=== PATIENT | female | born 1955 | race Caucasian/White ===

== ENCOUNTER 2017-02-05 06:35 | Inpatient (IN) | payer OTHER ==
[~2017-02-05] VITALS: Ht 160 cm; Wt 75.4 kg
[~2017-02-05 06:35] MED LIST: LEVO75TA PO; LXP/10 PO; OXYC-57 PO; PRLSR20 PO; ROPI0.5T15 PO
[2017-02-05] MEDS ORDERED: KETOROLAC TROMETHAMINE 30 MG/ML VIAL IV STA (06:49)
[2017-02-05] MEDS ORDERED: ONDANSETRON INJ 2 MG/ML 2 ML VIAL IV STA (06:49)
[2017-02-05] MEDS ORDERED: DEXAMETHASONE INJ 10 MG in SYRINGE 0 ML IV STA ×2 (06:49→09:58)
[2017-02-05] MEDS ORDERED: HYDROmorphone INJ 1 MG/ML SYR IV STA ×3 (06:49→09:45)
[2017-02-05] MEDS ORDERED: LIDODERM (LIDOCAINE) PATCH 5% TD STA (06:51)
--- NOTE | 2017-02-05 07:04 | EMERGENCY ROOM VISIT NOTE ---
History Report prepared by Manuel: Sundar Dubois Under the Supervision of: Dr. Donavon Lr M.D. First contact with patient: 06:45 Chief Complaint: LEG PAIN,LEG INJURY Stated Complaint: SCIATIC NERVE PAIN History of Present Illness The patient is a 61 year old female who presents to the Emergency Room with complaints of worsening right upper leg pain that radiates to her lower leg beginning two months ago. The patient states she was here three weeks ago and followed up with an orthopedist. She reports she was told she had a herniated disk that is pushing on her sciatic nerve. The patient notes she has not had an MRI done because her insurance would not approve it until after pain management failed. She states she woke in the middle of the night with excruciating pain, numbness, and is currently unable to walk on her right leg. The patient reports she cannot walk on her tiptoes either. She denies back pain, a history of diabetes mellitus, and taking blood thinners. Source of History: patient Onset: two months ago Position: leg (right, upper) Symptom Intensity: excruciating Quality: numbness Timing: worsening Modifying Factors (Worsening): other (walking) Associated Symptoms: No back pain Review of Systems See HPI for pertinent positives & negatives. A total of 10 systems reviewed and were otherwise negative. Past Medical & Surgical Medical Problems: (1) Herniated disc Surgical Problems: (1) S/P cholecystectomy Family History Cancer Social History Smoking Status: Current Every Day Smoker Alcohol Use: occasionally Marital Status: Housing Status: lives with significant other Occupation Status: employed Current/Historical Medications Scheduled Escitalopram Oxalate (Lexapro), 10 MG PO QAM Levothyroxine Sodium (Synthroid), 75 MCG PO QAM Omeprazole (Prilosec), 20 MG PO QAM Ropinirole (Requip), 0.5 MG PO QPM Allergies Coded Allergies: No Known Allergies (Unverified , 02/05/17) Physical Exam Vital Signs Date Time Temp Pulse Resp B/P (MAP) Pulse Ox O2 Delivery O2 Flow Rate FiO2 02/05/17 10:01 70 20 145/69 97 Room Air 02/05/17 08:14 70 20 142/78 93 Room Air 02/05/17 06:39 36.7 82 18 146/91 90 Room Air Physical Exam GENERAL: Patient is a healthy-appearing well-nourished 61 year old female. HEAD: Normocephalic atraumatic EYES: Ocular movements intact pupils equal and react to light OROPHARYNX mucous membranes are moist no exudates present no erythema or edema present NECK: Supple no nuchal rigidity CHEST: Good equal expansion LUNGS: Clear and equal to auscultation CARDIAC: Normal S1 and S2 ABDOMEN: Soft nontender no guarding BACK: No CVA tenderness EXTREMITIES: No pain upon palpation, cannot walk on right leg - strength of 4/ 5. Unable to walk on tiptoes. no clubbing cyanosis or edema NEURO: Patient is following commands and answering questions appropriately. Alert and oriented x3 Cranial Nerves 2-12 grossly intact Medical Decision & Procedures ER Provider Diagnostic Interpretation: Radiology results as stated below per my review and radiologist interpretation: MRI OF THE LUMBAR SPINE WITHOUT IV CONTRAST CLINICAL HISTORY: Right leg pain. COMPARISON STUDY: CT scan of lumbar spine dated 01/15/2017. TECHNIQUE: MRI of the lumbar spine is performed using various T1 and T2-weighted sequences in the axial and sagittal planes. IV contrast was not administered for this examination. FINDINGS: Lumbar spine: Vertebral body height and alignment are maintained throughout the lumbar spine. The transverse and spinous processes appear intact. There is no evidence of spondylolysis. No destructive bony lesion is seen. A hemangioma is noted in the body of L1. Degenerative endplate edema is noted at L4-L5 and L5-S1. Intervertebral discs: Degenerative disc desiccation and mild loss of height is seen throughout the lumbar spine. Spinal cord: The visualized spinal cord is normal in morphology and signal intensity. The conus medullaris terminates at the level of L1. The nerve roots of the cauda equina are normal in morphology. L1-L2: There is minimal posterior disc bulge. The central canal and neural foramina are patent. L2-L3: There is a posterior disc bulge. The central canal and neural foramina are patent. Mild bilateral subarticular stenosis is observed. This may abut the transiting left L3 nerve root. L3-L4: There is posterior disc bulge. In conjunction with hypertrophy of the ligamentum flavum there is mild central canal stenosis at this level with a minimum AP diameter of 8.5 mm. There is bilateral subarticular stenosis with possible impingement on the exiting left L3 nerve root. L4-L5: There is broad-based posterior disc bulge with annular fissure. In conjunction with hypertrophy of the ligamentum flavum this causes mild central canal stenosis with a minimum AP diameter of 7.5 mm. There is bilateral subarticular stenosis. The disc bulge may abut the exiting bilateral L4 and the transiting bilateral L5 nerve roots. L5-S1: There is a large disc herniation eccentric to the right with an inferiorly extruded fragment. This impinges on the transiting right-sided sacral nerve roots. There is only minimal acquired compromise the central canal at this level. The neural foramina are patent. Facet arthropathy is of no consequence. Sacrum: The visualized sacrum is normal in morphology and signal intensity. Soft tissues: The paraspinous soft tissues are within normal limits. The partially imaged retroperitoneal structures are grossly unremarkable but incompletely assessed. A nerve sheath cyst is suggested within the left neural foramen at T11-T12. This is only seen on the sagittal series. IMPRESSION: 1. There is a large disc herniation at L5-S1 eccentric to the right with an inferiorly extruded fragment. This impinges on the transiting right-sided sacral nerve roots. This was also seen by CT performed 3 weeks previously. 2. Multilevel lumbosacral spondylosis at additional levels as above with mild multilevel acquired compromise of the central canal. See discussion for detailed level by level analysis. 3. Degenerative disc disease with associated endplate edema as above. Electronically signed by: Hossein Fink M.D. 02/05/2017 8:47 AM Dictated Date/Time: 02/05/2017 8:14 AM Laboratory Results 02/05/17 07:15 Red Blood Count 4.60, Mean Corpuscular Volume 86.3, Mean Corpuscular Hemoglobin 29.6, Mean Corpuscular Hemoglobin Concent 34.3, Mean Platelet Volume 10.5, Neutrophils (%) (Auto) 61.1, Lymphocytes (%) (Auto) 24.0, Monocytes (%) (Auto) 8.8, Eosinophils (%) (Auto) 5.1, Basophils (%) (Auto) 0.9, Neutrophils # (Auto) 4.56, Lymphocytes # (Auto) 1.79, Monocytes # (Auto) 0.66, Eosinophils # (Auto) 0.38, Basophils # (Auto) 0.07 02/05/17 07:15 Test 02/05/17 07:15 White Blood Count 7.47 K/uL (4.8-10.8) Red Blood Count 4.60 M/uL (4.2-5.4) Hemoglobin 13.6 g/dL (12.0-16.0) Hematocrit 39.7 % (37-47) Mean Corpuscular Volume 86.3 fL (80-100) Mean Corpuscular Hemoglobin 29.6 pg (25-34) Mean Corpuscular Hemoglobin Concent 34.3 g/dl (32-36) Platelet Count 361 K/uL (130-400) Mean Platelet Volume 10.5 fL (7.4-10.4) Neutrophils (%) (Auto) 61.1 % Lymphocytes (%) (Auto) 24.0 % Monocytes (%) (Auto) 8.8 % Eosinophils (%) (Auto) 5.1 % Basophils (%) (Auto) 0.9 % Neutrophils # (Auto) 4.56 K/uL (1.4-6.5) Lymphocytes # (Auto) 1.79 K/uL (1.2-3.4) Monocytes # (Auto) 0.66 K/uL (0.11-0.59) Eosinophils # (Auto) 0.38 K/uL (0-0.5) Basophils # (Auto) 0.07 K/uL (0-0.2) RDW Standard Deviation 44.5 fL (36.4-46.3) RDW Coefficient of Variation 14.3 % (11.5-14.5) Immature Granulocyte % (Auto) 0.1 % Immature Granulocyte # (Auto) 0.01 K/uL (0.00-0.02) Anion Gap 8.0 mmol/L (3-11) Est Creatinine Clear Calc Drug Dose 83.1 ml/min Estimated GFR () 109.1 Estimated GFR (Non- 94.2 BUN/Creatinine Ratio 18.1 (10-20) Calcium Level 9.2 mg/dl (8.5-10.1) Total Bilirubin 0.5 mg/dl (0.2-1) Direct Bilirubin < 0.1 mg/dl (0-0.2) Aspartate Amino Transf (AST/SGOT) 20 U/L (15-37) Alanine Aminotransferase (ALT/SGPT) 22 U/L (12-78) Alkaline Phosphatase 64 U/L (45-117) Total Protein 7.0 gm/dl (6.4-8.2) Albumin 4.0 gm/dl (3.4-5.0) Lipase 92 U/L (73-393) Thyroid Stimulating Hormone (TSH) 9.580 uIu/ml (0.300-4.500) Medications Administered Medications (Trade) Dose Ordered Sig/Carlos Route Start Time Stop Time Status Last Admin Dose Admin Dexamethasone Sodium Phosphate 10 mg/Syringe 2.5 ml @ 1 mls/min NOW STAT IV 02/05/17 06:49 02/05/17 06:51 DC 02/05/17 07:34 1 MLS/MIN Ketorolac Tromethamine (Toradol Inj) 30 mg NOW STAT IV 02/05/17 06:49 02/05/17 06:52 DC 02/05/17 07:20 30 MG Hydromorphone HCl (Dilaudid Inj) 1 mg NOW STAT IV 02/05/17 06:49 02/05/17 06:52 DC 02/05/17 07:19 1 MG Ondansetron HCl (Zofran Inj) 4 mg NOW STAT IV 02/05/17 06:49 02/05/17 06:52 DC 02/05/17 07:19 4 MG Lidocaine (Lidoderm Patch 5%) 1 patch NOW STAT TD 02/05/17 06:51 02/05/17 06:52 DC 02/05/17 07:18 1 PATCH Hydromorphone HCl (Dilaudid Inj) 1 mg NOW STAT IV 02/05/17 08:08 02/05/17 08:10 DC 02/05/17 08:16 1 MG Hydromorphone HCl (Dilaudid Inj) 1 mg NOW STAT IV 02/05/17 09:45 02/05/17 09:47 DC 02/05/17 10:01 1 MG Dexamethasone Sodium Phosphate 10 mg/Syringe 2.5 ml @ 1 mls/min NOW STAT IV 02/05/17 09:58 02/05/17 10:00 DC 02/05/17 10:10 1 MLS/MIN Hydromorphone HCl (Dilaudid Inj) 1 mg Q2HWA PRN IV 02/05/17 10:45 02/19/17 10:44 02/05/17 12:41 1 MG ED Course 0646: Past medical records reviewed. The patient was evaluated in room B02. A complete history and physical examination was performed. 0649: Ordered Ondansetron HCl 4 mg IV, Hydromorphone HCl 1mg IV, Ketorolac Tromethamine 30mg IV, Dexamethasone Sodium Phosphate 10 mg/Syringe 2.5 ml @ 1 mls/min IV 0651: Ordered Lidocaine 1 patch TD 0808: Ordered Hydromorphone HCl 1mg IV 0925: I paged [facility]. 0944: Upon reexamination the patient is resting and requesting more pain medication. I discussed results and treatment plan with the patient. She verbalizes agreement and understanding. 0945: Ordered Hydromorphone HCl 1mg IV 0958: Ordered Dexamethasone Sodium Phosphate 10 mg/Syringe 2.5 ml @ 1 mls/min IV 0959: I discussed the patient's case with Dr. Still [facility] Hospitalist because I did not hear back from [facility]. The patient will be evaluated for further management and care. Medical Decision Differential diagnosis: Etiologies such as musculoskeletal, disc herniation, fracture, aortic disease, metastatic disease, cord compression, discitis, infection, renal colic, gastrointestinal, acute exacerbation of chronic back pain, sciatica, cauda equina, as well as others were entertained. This is a 61-year-old female who presents emergency department complaining of right-sided hip pain. The patient is unable to walk on her right side is complaining of right leg weakness. This for this reason she was sent for an emergent MRI or this was concerning for disc herniation. I had difficulty getting her pain under control has patient was given Decadron, Toradol, Dilaudid 3 along with a Lidoderm patch. For this reason I did discuss case with the hospitalist service who agreed to admit the patient. Patient and family were in agreement with treatment plan. Medication Reconcilliation Current Medication List: was personally reviewed by me Blood Pressure Screening Patient's blood pressure: Elevated blood pressure Blood pressure disposition: Referred to PCP Monitored by hospitalist. Consults Time Called: 945 Consulting Physician: Dr. Still [facility] Hospitalist Returned Call: [phone] I discussed the patient's case with Dr. Still [facility] Hospitalist because I did not hear back from [facility]. The patient will be evaluated for further management and care. Impression Primary Impression: Hip pain Scribe Attestation The scribe's documentation has been prepared under my direction and personally reviewed by me in its entirety. I confirm that the note above accurately reflects all work, treatment, procedures, and medical decision making performed by me. Departure Information Dispostion Being Evaluated By Hospitalist Referrals Jeronimo Chapin D.O. (PCP) Patient Instructions My [facility] Problem Qualifiers Primary Impression: Hip pain Laterality: right Qualified Codes: M25.551 - Pain in right hip
--- NOTE | 2017-02-05 08:48 | DIAGNOSTIC IMAGING REPORT ---
MRI OF THE LUMBAR SPINE WITHOUT IV CONTRAST CLINICAL HISTORY: Right leg pain. COMPARISON STUDY: CT scan of lumbar spine dated 01/15/2017. TECHNIQUE: MRI of the lumbar spine is performed using various T1 and T2-weighted sequences in the axial and sagittal planes. IV contrast was not administered for this examination. FINDINGS: Lumbar spine: Vertebral body height and alignment are maintained throughout the lumbar spine. The transverse and spinous processes appear intact. There is no evidence of spondylolysis. No destructive bony lesion is seen. A hemangioma is noted in the body of L1. Degenerative endplate edema is noted at L4-L5 and L5-S1. Intervertebral discs: Degenerative disc desiccation and mild loss of height is seen throughout the lumbar spine. Spinal cord: The visualized spinal cord is normal in morphology and signal intensity. The conus medullaris terminates at the level of L1. The nerve roots of the cauda equina are normal in morphology. L1-L2: There is minimal posterior disc bulge. The central canal and neural foramina are patent. L2-L3: There is a posterior disc bulge. The central canal and neural foramina are patent. Mild bilateral subarticular stenosis is observed. This may abut the transiting left L3 nerve root. L3-L4: There is posterior disc bulge. In conjunction with hypertrophy of the ligamentum flavum there is mild central canal stenosis at this level with a minimum AP diameter of 8.5 mm. There is bilateral subarticular stenosis with possible impingement on the exiting left L3 nerve root. L4-L5: There is broad-based posterior disc bulge with annular fissure. In conjunction with hypertrophy of the ligamentum flavum this causes mild central canal stenosis with a minimum AP diameter of 7.5 mm. There is bilateral subarticular stenosis. The disc bulge may abut the exiting bilateral L4 and the transiting bilateral L5 nerve roots. L5-S1: There is a large disc herniation eccentric to the right with an inferiorly extruded fragment. This impinges on the transiting right-sided sacral nerve roots. There is only minimal acquired compromise the central canal at this level. The neural foramina are patent. Facet arthropathy is of no consequence. Sacrum: The visualized sacrum is normal in morphology and signal intensity. Soft tissues: The paraspinous soft tissues are within normal limits. The partially imaged retroperitoneal structures are grossly unremarkable but incompletely assessed. A nerve sheath cyst is suggested within the left neural foramen at T11-T12. This is only seen on the sagittal series. IMPRESSION: 1. There is a large disc herniation at L5-S1 eccentric to the right with an inferiorly extruded fragment. This impinges on the transiting right-sided sacral nerve roots. This was also seen by CT performed 3 weeks previously. 2. Multilevel lumbosacral spondylosis at additional levels as above with mild multilevel acquired compromise of the central canal. See discussion for detailed level by level analysis. 3. Degenerative disc disease with associated endplate edema as above. Electronically signed by: Hossein Fink M.D. 02/05/2017 8:47 AM Dictated Date/Time: 02/05/2017 8:14 AM
[2017-02-05 10:23] LABS: ALT/SGPT 22 U/L (12-78); BASO % 0.9 %; BASO ABS # 0.07 K/uL (0-0.2); BLOOD UREA NITROGEN 13 mg/dl (7-18); BUN/CREATININE RATIO 18.1 (10-20); CALCIUM 9.2 mg/dl (8.5-10.1); CARBON DIOXIDE 24 mmol/L (21-32); CHLORIDE 103 mmol/L (98-107); COMPLETE YES; EOS % 5.1 %; GLUCOSE 98 mg/dl (70-99); HEMATOCRIT 39.7 % (37-47); IG% 0.1 %; LYMPH ABS # 1.79 K/uL (1.2-3.4); MEAN CELL VOLUME 86.3 fL (80-100); MEAN CORPUSCULAR HEMOGLOBIN 29.6 pg (25-34); MEAN CORPUSCULAR HGB CONC 34.3 g/dl (32-36); MEAN PLATELET VOLUME 10.5 fL (7.4-10.4); MONO % 8.8 %; NEUT % 61.1 %; PLATELET COUNT 361 K/uL (130-400); POTASSIUM 4.2 mmol/L (3.5-5.1); SODIUM 135 mmol/L (136-145); WHITE BLOOD COUNT 7.47 K/uL (4.8-10.8)
[2017-02-05 10:33] LABS: ALKALINE PHOSPHATASE 64 U/L (45-117); AST/SGOT 20 U/L (15-37)
[2017-02-05] MEDS ORDERED: MAGNESIUM HYDROXIDE SUSP 30 ML UDC PO PRN (10:45)
[2017-02-05] MEDS ORDERED: ALUMINUM/MAGNESIUM/SIMETH (MAALOX MAX) 30 ML UDC PO PRN (10:45)
[2017-02-05] MEDS ORDERED: POLYETHYLENE (MIRALAX) 17 GM PACK PO PRN (10:45)
[2017-02-05] MEDS ORDERED: ONDANSETRON INJ 2 MG/ML 2 ML VIAL IV PRN (10:45)
[2017-02-05] MEDS ORDERED: ACETAMINOPHEN 325 MG TAB PO PRN (10:45)
--- NOTE | 2017-02-05 11:15 | Medical Consult ---
Consultation Date of Consultation: Feb 05, 2017. Attending Physician: Dr. Stefan Alexandre Reason for Consultation: Medical management History of Present Illness This is a 61 y/o female with a history of anxiety, hypothyroidism, restless leg syndrome and GERD who presents to the ED on 02/05 with progressive right leg pain, numbness and weakness. The patient states that her pain has been ongoing for the last 2 months, but last night it became excruciating, prompting her to come to the ED. The patient had presented to the ED on 01/15 and was told she had a herniated disc that was pressing on her sciatic nerve. She was following up with orthopedics but was unable to obtain a lumbar MRI due to insurance issues. She was scheduled to follow up with pain management, but the pain became too severe last night. The patient states that her pain starts in her right hip and radiates all the way down to her foot. The pain is worst from the hip to the back of her right thigh. Last night the pain was a sharp 10/10. The pain is sometimes sharp, sometimes dull, and can be burning at times. She also complains of intermittent numbness/tingling down the right leg and weakness. She is sometimes unable to walk on the right leg as it gives out. Currently after receiving pain meds in the ED, she complains of a 3/10 pain. The patient denies fevers, chills, sweats, chest pain, palpitations, claudication, cough, wheezing, shortness of breath, nausea, vomiting, abdominal pain, dysuria, hematuria, urinary retention, paralysis. Past Medical/Surgical History Medical Problems: (1) Lumbar disc herniation Status: Acute (2) Sciatica Status: Acute Anxiety Hyperthyroidism s/p radioactive iodine, post CHERRY hypothyroidism RLS GERD Family History Cancer (colon) Cerebral aneurysm Chronic obstructive pulmonary disease Stroke Social History Smoking Status: Current Every Day Smoker (6 cigarettes/day) Smokeless Tobacco Use: No Alcohol Use: socially Marital Status: Housing Status: lives with significant other Occupation Status: employed Allergies Coded Allergies: No Known Allergies (Unverified , 02/05/17) Review of Systems Constitutional: No fever, No chills, No sweats Eyes: No worsening of vision, No eye pain, No diplopia ENT: No hearing loss, No nasal symptoms, No trouble swallowing Respiratory: No cough, No wheezing, No shortness of breath Cardiovascular: No chest pain, No claudication, No palpitations Abdomen: No pain, No nausea, No vomiting Musculoskeletal/extremities: +Right leg pain. No joint pain, No muscle pain, No swelling Genitourinary - Female: No dysuria, No urinary retention, No hematuria Neurologic: +Right leg numbness/tingling and weakness. No paralysis Integumentary: No rash, No itch, No color change Physical Exam Date Time Temp Pulse Resp B/P (MAP) Pulse Ox O2 Delivery O2 Flow Rate FiO2 02/05/17 10:01 70 20 145/69 97 Room Air 02/05/17 08:14 70 20 142/78 93 Room Air 02/05/17 06:39 36.7 82 18 146/91 90 Room Air General appearance: Well-developed, well-nourished, no apparent distress Head: Normocephalic, atraumatic Eyes: Normal inspection, PERRL, EOMI ENT: Normal ENT inspection, hearing grossly normal, pharynx normal Neck: Supple, no JVD, trachea midline Respiratory/Chest: Lungs clear to auscultation, normal breath sounds, no respiratory distress Cardiovascular: Regular rate & rhythm, no gallop, no murmur Abdomen/GI: Normal bowel sounds, non-tender, soft Extremities/Musculoskeletal: +Right hip and right posterior/lateral thigh TTP. Normal inspection, no calf tenderness, no pedal edema Neurological/Psych: +RLE 4/5 strength. Alert, normal mood/affect, oriented x 3 Skin: Normal color, warm/dry, no rash Laboratory Results Last 24 Hours Test 02/05/17 07:15 White Blood Count 7.47 K/uL Red Blood Count 4.60 M/uL Hemoglobin 13.6 g/dL Hematocrit 39.7 % Mean Corpuscular Volume 86.3 fL Mean Corpuscular Hemoglobin 29.6 pg Mean Corpuscular Hemoglobin Concent 34.3 g/dl Platelet Count 361 K/uL Mean Platelet Volume 10.5 fL Neutrophils (%) (Auto) 61.1 % Lymphocytes (%) (Auto) 24.0 % Monocytes (%) (Auto) 8.8 % Eosinophils (%) (Auto) 5.1 % Basophils (%) (Auto) 0.9 % Neutrophils # (Auto) 4.56 K/uL Lymphocytes # (Auto) 1.79 K/uL Monocytes # (Auto) 0.66 K/uL Eosinophils # (Auto) 0.38 K/uL Basophils # (Auto) 0.07 K/uL RDW Standard Deviation 44.5 fL RDW Coefficient of Variation 14.3 % Immature Granulocyte % (Auto) 0.1 % Immature Granulocyte # (Auto) 0.01 K/uL Sodium Level 135 mmol/L Potassium Level 4.2 mmol/L Chloride Level 103 mmol/L Carbon Dioxide Level 24 mmol/L Anion Gap 8.0 mmol/L Blood Urea Nitrogen 13 mg/dl Creatinine 0.70 mg/dl Est Creatinine Clear Calc Drug Dose 83.1 ml/min Estimated GFR () 109.1 Estimated GFR (Non- 94.2 BUN/Creatinine Ratio 18.1 Random Glucose 98 mg/dl Calcium Level 9.2 mg/dl Total Bilirubin 0.5 mg/dl Direct Bilirubin < 0.1 mg/dl Aspartate Amino Transf (AST/SGOT) 20 U/L Alanine Aminotransferase (ALT/SGPT) 22 U/L Alkaline Phosphatase 64 U/L Total Protein 7.0 gm/dl Albumin 4.0 gm/dl Lipase 92 U/L Thyroid Stimulating Hormone (TSH) 9.580 uIu/ml Assessment & Plan 61 y/o female with a history of anxiety, hypothyroidism, restless leg syndrome and GERD who presents to the ED on 02/05 with progressive right leg pain, numbness and weakness. MRI of lumbar spine shows large disc herniation at L5- S1 eccentric to the right with an inferiorly extruded fragment that impinge on the right sided sacral nerve roots. AVSS, labs grossly unremarkable. Disc herniation, right leg pain -Admit to med/surg. Dr. Alexandre/orthopedics to be primary. Pain management ultimately up to primary team, will order following regimen for now -Dilaudid 1 mg IV q2h while awake prn pain -Toradol 30 mg IV q6h prn pain -Lidoderm patch Anxiety -Continue Lexapro 10 mg PO qd Post CHERRY hypothyroidism -TSH 9.580. Pt in acute stress/pain for last 2 months. Per pt, her current dose had been keeping her TSH stable for a long time -Recheck thyroid function tests in 4-6 as outpatient -Continue Synthroid 75 mcg PO qd RLS -Continue Requip 0.5 mg PO hs GERD -Prilosec converted to Protonix 40 mg PO qd DVT prophylaxis -Enoxaparin 40 mg SC q24h -OSMANI Belcher Code Status -Level I, FULL RESUSCITATION STATUS Thank you for this consultation. We will continue to follow.
[2017-02-05 12:30] VITALS: BP 160/90; PULSE 76; TEMP 36.6; O2SAT 97; Ht 160 cm; Wt 75.4 kg
[2017-02-05] MEDS: HYDROmorphone INJ 1 MG/ML SYR IV PRN ×3 (12:41→19:55)
--- NOTE | 2017-02-05 13:22 | History and Physical ---
History & Physical Date Feb 05, 2017. Chief Complaint Right leg pain History of Present Illness The patient is a 61 year old female with complaints of severe right leg pain is markedly exacerbated the past several days. She's had the symptoms for several weeks. She is undergone both physical therapy as well as various forms of pain medication. She's noted a significant decline recently with the inability to ambulate secondary to pain in the right leg giving away on her. She describes her symptom complex involving the right and posterior thigh extending below the knee into the lesser toes. She notes significant numbness in the right lower extremity compared to left and again a sensation of breakaway weakness with weightbearing. She denies any specific trauma fall or event. She's not had any previous spine surgery. She denies any loss of bowel or bladder control. Past Medical/Surgical History Medical Problems: (1) Herniated disc Surgical Problems: (1) S/P cholecystectomy Allergies Coded Allergies: No Known Allergies (Unverified , 02/05/17) Home Medications Scheduled Escitalopram Oxalate (Lexapro), 10 MG PO QAM Levothyroxine Sodium (Synthroid), 75 MCG PO QAM Omeprazole (Prilosec), 20 MG PO QAM Ropinirole (Requip), 0.5 MG PO QPM Physical Examination Addiitonal Comments: Patient is sitting in bed she is comfortable throughout our discussion. She does exhibit significant tension signs with even modestly straight leg raising on the right. She exhibits a contralateral straight leg raising on the left. She is marked decreased sensation to the left lower extremity compared to the right. She is negative logroll. Her strength is essentially symmetric final 5 plantar flexion dorsiflexion quadriceps extensor hallucis longus Diagnosis Acute herniated nucleus pulposis L5-S1 on the right with evidence of free fragment and caudal migration. Plan at this time patient is in marked distress struggles with ambulation is failed extensive course of nonoperative care would like to consider surgical intervention. This time would require a lumbar laminotomy L5-S1 the right with excision of herniated free fragment. Risks benefits pros cons and alternatives were outlined in detail. Risk include but not limited to from anesthesia blindness stroke paralysis nerve damage blood loss requiring transfusion infection requiring reoperation benefits of hopefully marked improvement of her right-sided radiculopathy. This time she' ll made nothing by mouth and plan for surgery in the a.m.
[2017-02-05 13:28] LABS: INR 0.9 (0.9-1.1); PARTIAL THROMBOPLASTIN RATIO 0.9
[2017-02-05] MEDS: ENOXAPARIN 40 MG/0.4 ML SYR SQ SCH (15:27)
[2017-02-05 15:45] VITALS: O2SAT 97
[2017-02-05 16:00] VITALS: BP 155/84; PULSE 74; TEMP 36.6; O2SAT 94
[2017-02-05 16:23] LABS: URINE APPEARANCE CLEAR (CLEAR); URINE BILIRUBIN NEG (NEG); URINE COLOR YELLOW; URINE EPITHELIAL CELL AUTO >30 /lpf (0-5); URINE NITRITE NEG (NEG); URINE PH 5.5 (4.5-7.5); URINE SPECIFIC GRAVITY 1.024 (1.000-1.030); UROBILINOGEN NEG (NEG)
[2017-02-05 16:24] LABS: MANUAL MICROSCOPIC REQUIRED? NO; REVIEW REQ? YES
--- NOTE | 2017-02-05 16:44 | Anesthesiology Progress Note ---
Anesthesia Progress Note Date of Service Feb 05, 2017. Progress Notes This is a 61 y/o w female with a herniated lumbar disc for Laminectomy/ Laminotomy and disc excision.PMhx is sig.for Hypothyroidism, GERD,Restless Legs Syndrome,Rheumatoid Arthritis and cigarette smoking.Discussed anesthesia w/ patient,risks vs benefits,all questions answered.Informed consent obtained.Pt advised to be NPO after 2300 tonight. ASA 2
[2017-02-05] MEDS ORDERED: ROPINIROLE HCL 0.25 MG TAB PO SCH (21:00)
[2017-02-05] MEDS: KETOROLAC TROMETHAMINE 30 MG/ML VIAL IV PRN (21:01)
[2017-02-05 22:57] VITALS: BP 126/83; PULSE 87; TEMP 37; O2SAT 95
[2017-02-06] VITALS (8 sets, daily range): BP systolic 121–129; BP diastolic 61–77; PULSE 63–83; TEMP 36.3–36.5; O2SAT 94–100
[2017-02-06] MEDS: HYDROmorphone INJ 1 MG/ML SYR IV PRN ×2 (00:20→05:35)
[2017-02-06] MEDS: KETOROLAC TROMETHAMINE 30 MG/ML VIAL IV PRN (03:47)
[2017-02-06] MEDS: LEVOTHYROXINE 75 MCG TAB PO SCH ×2 (05:53→10:11)
[2017-02-06 05:57] LABS: HEMATOCRIT 40.3 % (37-47); MEAN CELL VOLUME 88.4 fL (80-100); PLATELET COUNT 348 K/uL (130-400); RED BLOOD COUNT 4.56 M/uL (4.2-5.4); WHITE BLOOD COUNT 14.57 K/uL (4.8-10.8)
[2017-02-06 06:30] LABS: CALCIUM 8.8 mg/dl (8.5-10.1); CREATININE 0.69 mg/dl (0.60-1.20); POTASSIUM 3.6 mmol/L (3.5-5.1)
[2017-02-06] MEDS ORDERED: LIDOCAINE HCL 2% 2 ML VIAL (20MG/ML) ONE (06:38)
[2017-02-06] MEDS ORDERED: FENTANYL CITRATE INJ 50 MCG/1 ML 2 ML VIAL ONE (06:39)
[2017-02-06] MEDS ORDERED: PROPOFOL IV EMULSION 10 MG/ML 20 ML VIAL IV ONE (06:40)
[2017-02-06] MEDS ORDERED: MIDAZOLAM HCL 1 MG/ML 2ML VIAL ONE (06:40)
[2017-02-06] MEDS ORDERED: DEXAMETHASONE SOD INJ 4 MG/ML VIAL ONE (06:41)
[2017-02-06] MEDS ORDERED: BUPIVACAINE/EPINEPHRINE 0.5% MPF 1:200,000 30 ML VIAL ONE (06:55)
[2017-02-06] MEDS ORDERED: BACITRACIN 50000 UNIT VIAL ONE (06:55)
--- NOTE | 2017-02-06 07:26 | History & Physical Bridge Note ---
H&P Re-Evaluation Bridge Note: I have examined the patient, reviewed the History & Physical and in the interval since the performance of the History & Physical I have noted the following changes of clinical significance: No changes noted
[2017-02-06] MEDS ORDERED: HYDROmorphone INJ 2 MG/ML SYR/VIAL ONE (07:55)
[2017-02-06] MEDS ORDERED: SUCCINYLCHOLINE 100MG/5ML SYR IV ONE (07:57)
[2017-02-06] MEDS ORDERED: ROCURONIUM BROMIDE 10 MG/ML 5 ML VIAL IV ONE (08:06)
[2017-02-06] MEDS ORDERED: ONDANSETRON INJ 2 MG/ML 2 ML VIAL ONE (08:09)
[2017-02-06] MEDS ORDERED: GLYCOPYRROLATE INJ 0.2 MG/ML VIAL ONE (08:36)
[2017-02-06] MEDS ORDERED: NEOSTIGMINE METHYLSULFATE 1 MG/ML 10ML VIAL ONE (08:36)
[2017-02-06] MEDS ORDERED: FLOSEAL HEMOSTATIC MATRIX 10ML TOP ONE (08:38)
[2017-02-06] MEDS ORDERED: LACTATED RINGER'S 1000ML 1,000 ML IV SCH (08:42)
[2017-02-06] MEDS ORDERED: ACETAMINOPHEN 325 MG TAB PO PRN (08:45)
[2017-02-06] MEDS ORDERED: LORAZEPAM INJ 1 MG in SYRINGE 0.5 ML IV PRN (08:45)
[2017-02-06] MEDS ORDERED: MAGNESIUM HYDROXIDE SUSP 30 ML UDC PO PRN (08:45)
[2017-02-06] MEDS ORDERED: DO NOT ADMINISTER PNEUMOCOCCAL VACCINE PRN ×2 (08:45)
[2017-02-06] MEDS ORDERED: LORAZEPAM 1 MG TAB PO PRN (08:45)
[2017-02-06] MEDS ORDERED: OXYCODONE HCL IR 5 MG TAB (IMMEDIATE RELEASE) PO PRN (08:45)
[2017-02-06] MEDS ORDERED: HYDROmorphone INJ 1 MG/ML SYR IV PRN ×2 (08:45→09:30)
[2017-02-06] MEDS ORDERED: ACETAMINOPHEN 500 MG TAB PO PRN (08:45)
[2017-02-06] MEDS ORDERED: ONDANSETRON INJ 2 MG/ML 2 ML VIAL IV PRN ×2 (08:45→09:30)
[2017-02-06] MEDS ORDERED: DO NOT ADMINISTER FLU VACCINE PRN ×3 (08:45)
[2017-02-06] MEDS ORDERED: RXC5 PO (08:47)
--- NOTE | 2017-02-06 08:47 | [facility] Operative Report ---
Operative Report Operative Date Feb 06, 2017. Pre-Operative Diagnosis Acute herniated nucleus pulposis L5-S1 on the right with evidence of free fragment and caudal migration. Post-Operative Diagnosis Acute herniated nucleus pulposis L5-S1 on the right with evidence of free fragment and caudal migration. Procedure(s) Performed Right L5-S1 Laminectomy Surgeon Dr. Emiliano Alexandre Mineral Surveyor Surgeon(s) none Estimated Blood Loss 25mL Findings Herniated nucleus pulposus Specimens none per surgeon Description of Procedure Patient was met with preoperatively case reviewed all questions addressed. After informed consent obtained patient was taken to the operative suite underwent intubation placed in a prone position on the Lanre table on top of the Mars frame. All bony prominences well-padded eyes inspected to ensure there is no external pressure placed upon them. This point the lumbar spines prepped draped nostril fashion. The assistance of fluoroscopy identified the L5 -S1 disc space. I couldn't midline incision overlying this region. Sharp dissection with the assistance of Bovie cautery was performed onto an exposing the interlaminar space at L5-S1 the right. A self-retaining retractors placed. Then performed a small laminotomy excising lateral portion of the ligamentum flavum to expose a markedly compressed S1 nerve root. Mobilize this medially and addressed several loose fragments of disc material directly compressing the nerve root. The area was explored several times ensure all loose fragments were addressed. I then copiously irrigated the incision. It was then closed with 1 Vicryl in the fascia 2-0 Vicryl subcutaneous cutaneously 4 Monocryl for final skin closure Steri-Strips sterile dressings placed. Patient we can take PACU stable condition. I attest to the content of the Intraoperative Record and any orders documented therein. Any exceptions are noted below.
--- NOTE | 2017-02-06 08:48 | Discharge Instructions ---
Discharge Instructions Date of Service Feb 06, 2017. Admission Reason for Admission: Herniated Disc Discharge Discharge Diagnosis / Problem: lumbar disc herniation Discharge Goals Goal(s): Decrease discomfort Activity Recommendations Activity Limitations: per Instructions/Follow-up section . Instructions / Follow-Up Instructions / Follow-Up ACTIVITY RECOMMENDATIONS: SELF CARE INSTRUCTIONS AFTER A LAMINECTOMY 1. No prolonged sitting (less than 30 minutes for the first 3 weeks after surgery). 2. No bending, lifting more than 5 pounds, or twisting (roll like a log when turning in bed). 3. You may shower 3 days after surgery if no drainage from wound. Thoroughly dry wound. Do not soak in the tub. 4. Please walk as much as you can for exercise. Gradually increase the distance that you walk as your endurance increases. 5. You may drive in 7-10 days if you are comfortable and no longer requiring pain medications. SPECIAL CARE INSTRUCTIONS: VERY IMPORTANT TO READ AND REVIEW A. Your surgical incision has been closed with a cosmetic suture under the skin that will dissolve in about 6 weeks. In 14 days, you can use a pair of clean scissors and cut the suture that is left outside of the skin at the ends of your incision. B. Complications are uncommon, but please contact us if you have any signs or symptoms of: 1. wound infection (fever higher than 102.5 degrees F, redness, separation of wound, drainage, or increasing pain from the incision) 2. blood clots in legs (pain, swelling, redness and warmth in legs) 3. urinary tract infection (fever higher than 102.5 degrees, burning upon urination or increased frequency of urination) 4. nerve problems (inability to walk on your toes or heels, numbness, loss of bowel or bladder control) 5. any other symptoms that concern you. C. Please call the office at if you have any concerns or questions about your operation or recovery. MANAGING PAIN AFTER SPINAL SURGERY 1. Narcotic medication is intended for short-term use and will be provided for surgical pain. Surgical pain usually lasts for a period of 4-6 weeks. Narcotic medication includes Percocet, Vicodin, Darvocet, Tylenol #3 or Lortab. 2. Longer-term pain is more appropriately treated with non-narcotic medication such as Tylenol ES. 3. Muscle spasm is not appropriately treated with narcotics. Muscle relaxers such as Soma, Flexeril or Skelaxin can be used along with Tylenol ES. 4. Remember that we all live with some "aches and pains". This is not unusual or uncommon after an injury or as we get older. 5. We will provide appropriate medication within the normal guidelines of their prescribed use. We will also be very cautious and aware of potential abuse and extended duration of patients' medication needs. 6. Please allow 2-3 days to process refills. Prescriptions will not be mailed but must be picked up at the office. FOLLOW UP VISIT: Keep your scheduled follow-up appointment. Any questions, please call the office at . Current Hospital Diet Patient's current hospital diet: Regular Diet Discharge Diet Recommended Diet: Regular Diet Procedures Procedures Performed: Right L5-S1 Laminectomy Pending Studies Studies pending at discharge: no Medical Emergencies . Who to Call and When: Medical Emergencies: If at any time you feel your situation is an emergency, please call 911 immediately. . Non-Emergent Contact Non-Emergency issues call your: Primary Care Provider . "Provider Documentation" section prepared by Adolph Alexandre. . VTE Core Measure Inpt VTE Proph given/why not?: Tiki Lange, SCD's
[2017-02-06] MEDS ORDERED: LABETALOL HCL IV 5 MG/ML 20ML IV ONE (08:55)
[2017-02-06] MEDS ORDERED: DOCUSATE SODIUM 100 MG CAP PO SCH (09:00)
[2017-02-06] MEDS ORDERED: PANTOprazole SOD 40 MG TAB PO SCH (09:00)
[2017-02-06] MEDS ORDERED: ESCITALOPRAM OXALATE 10 MG TAB PO SCH (09:00)
[2017-02-06] MEDS ORDERED: LIDODERM (LIDOCAINE) PATCH 5% TD SCH (09:00)
[2017-02-06] MEDS ORDERED: CEFAZOLIN SOD 1 GM VIAL ONE (09:18)
[2017-02-06] MEDS ORDERED: AMIODARONE HCL INJ 50 MG/ML 3 ML VIAL ONE (09:18)
[2017-02-06] MEDS ORDERED: SODIUM CHLORIDE 0.9% INJ 10 ML VIAL ONE (09:19)
[2017-02-06] MEDS ORDERED: EpHEDrine SULFATE INJ 50 MG/ML AMP IV PRN (09:30)
[2017-02-06] MEDS ORDERED: ATROPINE SULFATE 0.1 MG/ML 5ML SYR IV PRN (09:30)
[2017-02-06] MEDS ORDERED: FLUMAZENIL 0.1 MG/1 ML 10 ML VIAL IV PRN (09:30)
[2017-02-06] MEDS ORDERED: LABETALOL HCL IV 5 MG/ML 20ML IV PRN (09:30)
[2017-02-06] MEDS ORDERED: PROMETHAZINE HCL INJ 12.5 MG in SODIUM CHLORIDE 0.9% 50ML 50 ML IV PRN (09:30)
[2017-02-06] MEDS ORDERED: NALOXONE HCL 0.4 MG/1 ML VIAL/CARP IV PRN (09:30)
--- NOTE | 2017-02-06 09:37 | DIAGNOSTIC IMAGING REPORT ---
SPINE ONE VIEW, ANY LEVEL CLINICAL HISTORY: Laminectomy. COMPARISON STUDY: CT of the lumbar spine January 15, 2017 and MRI of the lumbar spine February 05, 2017. Fluoroscopy time: 4.2 seconds. FINDINGS: Single lateral fluoroscopic image demonstrates surgical retractors with a surgical instrument directed over the posterior S1 vertebral body. IMPRESSION: Intraoperative localization with surgical instrument directed overlying the posterior S1 vertebral body. Electronically signed by: Addison Morales M.D. 02/06/2017 9:36 AM Dictated Date/Time: 02/06/2017 9:34 AM
[2017-02-06] MEDS ORDERED: HYDROmorphone INJ 2 MG/ML SYR/VIAL IV PRN (10:00)
--- NOTE | 2017-02-06 10:16 | Anesthesiology Progress Note ---
Anesthesia Post Op Note Date & Time Feb 06, 2017 at 10:15 Vital Signs Pain Intensity: 0 Vital Signs Past 12 Hours Date Time Temp Pulse Resp B/P (MAP) Pulse Ox O2 Delivery O2 Flow Rate FiO2 02/06/17 09:40 65 14 129/65 95 Nasal Cannula 2 02/06/17 09:30 36.6 67 14 131/68 98 Nasal Cannula 2 02/06/17 09:20 74 20 133/77 100 Oxymask 5 02/06/17 09:10 74 17 144/76 100 Oxymask 10 02/06/17 09:01 36.6 76 16 141/65 100 Oxymask 10 02/06/17 02:49 Room Air 02/05/17 22:57 37.0 87 16 126/83 (97) 95 Room Air Notes Mental Status: alert / awake / arousable, participated in evaluation Pt Amnestic to Procedure: Yes Nausea / Vomiting: adequately controlled Pain: adequately controlled Airway Patency, RR, SpO2: stable & adequate BP & HR: stable & adequate Hydration State: stable & adequate Anesthetic Complications: no major complications apparent
--- NOTE | 2017-02-06 12:21 | Progress Note ---
Subjective Date of Service: Feb 06, 2017. Subjective pt is doing well surrounded by family, she has marked improvement in pain control Problem List Medical Problems: (1) Hip pain Status: Acute (2) Lumbar disc herniation Status: Acute (3) Sciatica Status: Acute Review of Systems Constitutional: No fever, No chills Respiratory: No cough, No shortness of breath, No dyspnea on exertion Cardiac: No chest pain, No edema Abdomen: No pain, No nausea, No vomiting, No diarrhea Objective Vital Signs Date Time Temp Pulse Resp B/P (MAP) Pulse Ox O2 Delivery O2 Flow Rate FiO2 02/06/17 02:49 Room Air 02/05/17 22:57 37.0 87 16 126/83 (97) 95 Room Air 02/05/17 16:00 36.6 74 16 155/84 (107) 94 Room Air 02/05/17 15:45 97 Room Air 02/05/17 12:30 36.6 76 16 160/90 Room Air 02/05/17 12:30 36.6 76 16 160/90 (113) 97 Room Air 02/05/17 12:14 72 20 148/58 98 02/05/17 11:56 72 20 148/58 98 Room Air 02/05/17 10:01 70 20 145/69 97 Room Air 02/05/17 08:14 70 20 142/78 93 Room Air Physical Exam General Appearance: WD/WN, + mild distress Eyes: PERRL, EOMI Neck: supple, no JVD Respiratory/Chest: chest non-tender, lungs clear, normal breath sounds Cardiovascular: regular rate, rhythm, no murmur Abdomen: normal bowel sounds, non tender, soft Extremities: no pedal edema, no calf tenderness Neurologic/Psychiatric: no motor/sensory deficits, alert, oriented x 3 Laboratory Results Last 24 Hours Test 02/05/17 12:45 02/05/17 16:00 02/06/17 05:17 Prothrombin Time 10.0 SECONDS Prothromb Time International Ratio 0.9 Activated Partial Thromboplast Time 23.9 SECONDS Partial Thromboplastin Ratio 0.9 Urine Color YELLOW Urine Appearance CLEAR Urine pH 5.5 Urine Specific [place] 1.024 Urine Protein NEG Urine Glucose (UA) 3+ Urine Ketones TRACE Urine Occult Blood 2+ Urine Nitrite NEG Urine Bilirubin NEG Urine Urobilinogen NEG Urine Leukocyte Esterase NEG Urine WBC (Auto) 1-5 /hpf Urine RBC (Auto) 10-30 /hpf Urine Hyaline Casts (Auto) 0 /lpf Urine Epithelial Cells (Auto) >30 /lpf Urine Bacteria (Auto) NEG Urine Renal Epithelial Cells /lpf White Blood Count 14.57 K/uL Red Blood Count 4.56 M/uL Hemoglobin 13.7 g/dL Hematocrit 40.3 % Mean Corpuscular Volume 88.4 fL Mean Corpuscular Hemoglobin 30.0 pg Mean Corpuscular Hemoglobin Concent 34.0 g/dl RDW Standard Deviation 46.9 fL RDW Coefficient of Variation 14.7 % Platelet Count 348 K/uL Mean Platelet Volume 10.0 fL Sodium Level 133 mmol/L Potassium Level 3.6 mmol/L Chloride Level 100 mmol/L Carbon Dioxide Level 30 mmol/L Anion Gap 3.0 mmol/L Blood Urea Nitrogen 15 mg/dl Creatinine 0.69 mg/dl Est Creatinine Clear Calc Drug Dose 84.3 ml/min Estimated GFR () 109.7 Estimated GFR (Non- 94.6 BUN/Creatinine Ratio 22.0 Random Glucose 92 mg/dl Calcium Level 8.8 mg/dl Assessment and Plan 61 y/o female with a history of anxiety, hypothyroidism, restless leg syndrome and GERD who presents to the ED on 02/05 with radicular, numbness and weakness. MRI of lumbar spine shows large disc herniation at L5-S1 , doing well post operatively tentative discharge maybe today Right radicular leg pain, Disc herniation Dr. Alexandre/orthopedics, now better post op Anxiety Lexapro 10 mg PO qd hypothyroidism Synthroid 75 mcg PO qd RLS Requip 0.5 mg PO hs GERD Protonix 40 mg PO qd DVT prophylaxis-Enoxaparin 40 mg SC q24h -OSMANI baldwin and SCDs Code Status -Level I, FULL RESUSCITATION STATUS
[2017-02-06] MEDS: ENOXAPARIN 40 MG/0.4 ML SYR SQ SCH (14:41)
[2017-02-06] MEDS ORDERED: CEFAZOLIN IV 1,000 MG in SYRINGE 0 ML IV SCH (16:00)
[2017-02-06] MEDS ORDERED: DEXAMETHASONE INJ 6 MG in SYRINGE 0 ML IV SCH (16:00)
--- NOTE | 2017-02-07 12:59 | Discharge Summary ---
Orthopedic Discharge Summary Admission Date/Reason Feb 05, 2017 at 10:53 Lumbar Disc Herniation With Radiculopathy. Discharge Date/Disposition Feb 06, 2017 Home Diagnosis Principal Diagnosis: Herniated nucleus pulposus L5-S1 Admission Physical Exam As per Admitting History & Physical. Hospital Course Patient was admitted to the hospital on Wednesday with significant sciatica. She was struggling with ability to ambulate cannot control her pain. After evaluation we elected to go lumbar laminotomy. On Wednesday morning she underwent laminotomy tolerated this well return to the orthopedic floor. Pain was well-controlled she is ambulating appropriate and socially discharge home that day. Discharge orders and instructions can be found the chart for further review. Discharge Instructions Please refer to the electronic Patient Visit Report (Discharge Instructions) for additional information.
[2017-02-08] MEDS ORDERED: BISACODYL 5 MG TABEC PO PRN (06:00)
[2017-02-08] MEDS ORDERED: BISACODYL 10 MG SUPP PR PRN (06:00)
[2017-02-08] MEDS ORDERED: POLYETHYLENE (MIRALAX) 17 GM PACK PO SCH (09:00)
== END 2017-02-06 18:13 | disposition home or self-care (01) | DRG 517 ==
LOC: C.EDB 06:36 → C.MSW 10:53 → ENRESERV 12:00
PROVIDERS: ADMIT Hospitalist; ATTEND Orthopaedic Surgery Orthopaedic Surgery of the Spine
PROC: 01NB0ZZ Release Lumbar Nerve, Open Approach (ICD-10-PCS; principal; 2017-02-06 07:30)
DX: M51.17 Intervertebral disc disorders with radiculopathy, lumbosacral region (principal); F41.9 Anxiety disorder, unspecified; E89.0 Postprocedural hypothyroidism; G25.81 Restless legs syndrome; K21.9 Gastro-esophageal reflux disease without esophagitis; M06.9 Rheumatoid arthritis, unspecified; F17.210 Nicotine dependence, cigarettes, uncomplicated; Z79.899 Other long term (current) drug therapy; Z80.0 Family history of malignant neoplasm of digestive organs; Z82.5 Family history of asthma and other chronic lower respiratory diseases; Z82.3 Family history of stroke